=== PATIENT | female | born 1965 | race Two or more races ===

== ENCOUNTER → 2024-10-20 | Day surgery (SDC) | payer MEDICAID ==
[2024-10-19 12:38] LABS: Urine Bacteria None Seen /hpf (None Seen)
[2024-10-19 12:40] LABS: Basophils # (auto) 0.1 10 ^3/uL (0-0.2); Eosinophils # (auto) 0.2 10 ^3/uL (0-0.8); Eosinophils % (auto) 2.7 % (0.0-7.0); Hematocrit 51.8 % (36.0-46.0); Lymphocytes # (auto) 1.9 10 ^3/uL (0.4-5.4); Lymphocytes % (auto) 20.4 % (10.0-50.0); Mean Corpuscular Hemoglobin 30.3 pg (28.0-32.0); Mean Corpuscular Hgb Conc. 32.9 g/dL (32.0-36.0); Mean Corpuscular Volume 92.2 fL (80.0-100.0); Monocytes # (auto) 0.6 10 ^3/uL (0-1.3); Monocytes % (auto) 6.8 % (0.0-12.0); Neutrophils # (auto) 6.3 10 ^3/uL (1.6-8.6); Neutrophils % (auto) 69.1 % (37.0-80.0); Nucleated Red Blood Cells % 0.3 %; Platelet Count (auto) 243 10^3/uL (140-450); Red Blood Cells 5.62 10^6/uL (4.0-5.20); Red Cell Distribution Width 15.4 % (11.8-14.3); White Blood Cell 9.1 10^3/uL (4.4-10.8)
[2024-10-19 12:45] LABS: Urine Blood Negative /uL (Negative); Urine Clarity Clear (Clear); Urine Color Light-Yellow (Yellow); Urine Protein, UAD Negative (Negative); Urine Specific Gravity 1.005 (1.001-1.035); Urine Squamous Epithelial Cell FEW /hpf (<5); Urine Urobilinogen Normal (Negative); Urine WBC 1 /HPF (0-5)
[2024-10-19 13:18] LABS: INR 0.98 (0.9-1.15); Partial Thromboplastin Time 27.2 SEC (24.5-34.5); Prothrombin Time 10.4 sec (9.3-11.8)
[2024-10-19 13:41] LABS: Albumin 4.7 g/dL (3.2-4.8); Alkaline Phosphatase 102 U/L (46-116); Anion Gap 9 (5-15); BUN/Creatinine Ratio 6.6 (10.0-20.0); Blood Urea Nitrogen 10 mg/dL (9-23); Carbon Dioxide 29 mmol/L (20-31); Chloride 102 mmol/L (98-107); Glucose 101 mg/dL (74-106); Potassium 4.5 mmol/L (3.5-5.1); Sodium 140 mmol/L (136-145)
[2024-10-19 13:42] LABS: Bilirubin, Total 0.5 mg/dL (0.2-1.0); Total Protein 7.3 g/dL (5.7-8.2)
[2024-10-19 13:45] LABS: Alanine Aminotransferase 51 U/L (7-40); Aspartate Aminotransferase 88 U/L (13-40)
[~2024-10-20] VITALS: Ht 157.5 cm; Wt 110.7 kg
[~2024-10-20] MED LIST: CHOL100047 PO; CYAN-17 PO; FLUO1TAB14 PO; FOLI-119 PO; LAM100T PO; LEVO50TA61 PO; LIDOCAINE 1% INJ PF 5ML AMP ONE; MAGN400T40 OR; OMEP-448 PO; ONDANSETRON HCL 4 MG/2 ML VIAL IV ONE; ONDANSETRON HCL 4 MG/2 ML VIAL ONE; PROPOFOL 10 MG/ML 20 ML IV ONE; RIS1T PO; ZOLP10TA PO; ePHEDrine SULFATE 50 MG/ML AMP IV PRN
[2024-10-20 09:59] VITALS: TEMP 97.9; O2SAT 100
--- NOTE | 2024-10-20 09:59 | DVHHP2 ---
GI H&P Pre-Op Assessment Date: 10/20/24 Chief complaint: nausea, vomiting, abdominal pain HPI: per clinic note Past medical history: per clinic note Past surgical history: per clinic note Family history: per clinic note Physical exam: General: NAD, AAOX3 HEENT: PERRL, no scleral icterus, normal hearing, gums without lesions or bleeding, oropharynx clear without erythema or exudate. Neck: Supple without enlargement of the thyroid, or lymphadenopathy. Chest: Normal size and shape, no tenderness, lung burton clear to auscultation and percussion, nonlabored breathing. Heart: RRR, no murmur Abdomen: non-distended, no tenderness to palpation, +BS, no hepatosplenomegaly Extremities: no edema Neurological: CN II-XII intact, sensation intact in all extremities, 5+ strength in all extremities Skin: No rashes, No jaundice Assessment: - nausea, vomiting, abdominal pain Plan: - EGD - Risks (bleeding, infection, perforation, reaction to sedation medications and cardiopulmonary arrest) and benefit of the procedure were explained to patient. Patient agrees to undergo the procedure. DINH QUESADA MD Oct 20, 2024 09:59
--- NOTE | 2024-10-20 10:01 | DVHOP2 ---
Operative Report DATE OF OPERATION: 10/20/24 PROCEDURE: Upper Endoscopy. PREOPERATIVE INDICATION: The patient is a 59 -year-old female undergoing endoscopy for nausea, vomiting, abdominal pain. POSTOPERATIVE DIAGNOSES: 1. Gastritis. 2. Hiatal hernia 30-35 cm. PROCEDURE PERFORMED BY: Samuel Hernandez SCOPE: Olympus videoendoscope. ASA CLASS: 3 PREOPERATIVE MEDICATIONS: MAC with Dr Sarah PROCEDURE IN DETAIL: After obtaining an informed consent, the patient was placed on left lateral decubitus position. The patient was then sedated with the above medications. A bite block was placed between her teeth. The endoscope was then passed through the oropharynx, into the esophagus, and thro ugh the stomach and pylorus up to the second and third part of the duodenum. The duodenum was normal in appearance. There was gastritis. Gastric biopsies were obtained. There was hiatal hernia 30-35 cm. The GEJ was normal in appearance at 30 cm. The esophagus was normal in appearance. The endoscope was then withdrawn. The patient tolerated the procedure well without difficulty. COMPLICATIONS : None SPECIMENS: Gastric biopsies DISPOSITION: D/C to home PLAN: 1. Await for biopsy result SAMUEL HERNANDEZ MD Oct 20, 2024 10:01
--- NOTE | 2024-10-20 10:01 | DVHDS2 ---
Physician Discharge Progress N Final Diagnosis: gastritis hiatal hernia Operations or Procedures: Operations or Procedures EGD with biopsy Condition on Discharge: Good Disposition: Home Discharge Instructions: Diet: Regular Activity: No Restrictions, As Tolerated Medications: resume with previous home medications Follow Up Care: Discharge Statement: "Patient was advised to return to the ER or call 911 if any headaches, dizziness, shortness of breath, chest pain, abdominal pain, bleeding, fevers, or worsening of medical condition. Patient was counseled about treatment plan, medications, possible side effects, patientverbalized understanding. All questions were answered to the best of my ability. This discharge took greater then 30 minutes in planning, reviewing documen tation, counseling the patient, and discussing with other team members." DINH QUESADA MD Oct 20, 2024 10:01
[2024-10-20 10:14] VITALS: BP 124/64; PULSE 95; RESP 20; O2SAT 94
== END | disposition home or self-care (01) ==
LOC: GI 07:52
PROVIDERS: ATTEND Internal Medicine Gastroenterology
DX: R11.2 Nausea with vomiting, unspecified (principal); K29.50 Unspecified chronic gastritis without bleeding; R10.9 Unspecified abdominal pain; K44.9 Diaphragmatic hernia without obstruction or gangrene; E03.9 Hypothyroidism, unspecified; J44.9 Chronic obstructive pulmonary disease, unspecified; M19.90 Unspecified osteoarthritis, unspecified site; F41.8 Other specified anxiety disorders; E66.9 Obesity, unspecified; Z68.41 Body mass index [BMI] 40.0-44.9, adult; Z98.51 Tubal ligation status; Z98.890 Other specified postprocedural states
CPT/HCPCS: 36415; 43239; 80053; 81001; 85025; 85610; 85730; 88305; 88312; 88342; J2405; J2704; J7030